=== PATIENT | male | born 1985 | race Two or more races ===

== ENCOUNTER 2021-05-04 01:19 | Inpatient (IN) | payer MEDICAID, OTHER ==
[~2021-05-04] VITALS: Ht 175.3 cm; Wt 102.5 kg
--- NOTE | 2021-05-04 01:30 | NUR ---
PT PROVIDED WITH WARM BLANKETS.
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
--- NOTE | 2021-05-04 02:05 | NUR ---
urine collected sent for lab
[2021-05-04 02:21] LABS: BILIRUBIN,URINE Negative (NEGATIVE); COLOR,URINE YELLOW (YELLOW); LEUKOCYTE ESTERASE ,URINE Negative (NEGATIVE); NITRITE, URINE Negative (NEGATIVE); PROTEIN,URINE Negative (NEGATIVE); UGLUCOSE 500 MG/DL mg/dL (NEGATIVE); UROBILINOGEN,URINE 0.2 EU/dL (0.2)
[2021-05-04 02:24] LABS: BASOPHILS # (AUTO) 0.2 K/uL (0.0-0.2); BASOPHILS % (AUTO) 1.6 % (0.0-2.0); EOSINOPHILS % (AUTO) 2.1 % (0.0-6.0); HEMATOCRIT 43 % (39-51); LYMPHOCYTES # (AUTO) 2.1 K/uL (0.8-4.8); LYMPHOCYTES % (AUTO) 22.1 % (20.0-44.0); MEAN CORPUSCULAR HGB CONC 37 g/dl (31.0-36.0); MEAN CORPUSCULAR VOLUME 94 fL (80-96); MONOCYTES # (AUTO) 0.8 K/uL (0.1-1.30); MONOCYTES % (AUTO) 7.9 % (2.0-12.0); NEUTROPHILS # (AUTO) 6.4 K/uL (1.8-8.9); NEUTROPHILS % (AUTO) 66.3 % (43.0-81.0); PLATELET COUNT (AUTO) 166 K/uL (150-450); RED BLOOD CELL COUNT(AUTO) 4.64 MIL/uL (4.5-6.0); WHITE BLOOD COUNT (AUTO) 9.7 K/uL (4.3-11.0)
[2021-05-04 02:29] LABS: BACTERIA,URINE None seen /HPF (None Seen); MUCUS,URINE Few /LPF (None Seen); SQUAMOUS EPITHELIAL CELL,UR Rare /HPF (None Seen); WBC,URINE 0-2 /HPF (0-3)
--- NOTE | 2021-05-04 03:06 | NUR ---
per lab, blood results are lipemic, therefore delayed
[2021-05-04 03:11] LABS: CARBON DIOXIDE 16 mmol/L (21-32); CHLORIDE 104 mmol/L (98-107); CREATININE 0.9 mg/dL (0.6-1.3); GLUCOSE 192 mg/dL (74-106); POTASSIUM 3.7 mmol/L (3.5-5.1); UREA NITROGEN, BLOOD 7 mg/dL (7-18)
[2021-05-04 03:17] LABS: ALBUMIN 3.5 g/dL (3.4-5.0); ALCOHOL, BLOOD 8 mg/dL (0-0); ALKALINE PHOSPHATASE 178 U/L (46-116); BILIRUBIN,DIRECT 0.1 mg/dL (0.0-0.2); BILIRUBIN,TOTAL 0.8 mg/dL (0.2-1.0); TOTAL PROTEIN, SERUM 7.3 g/dL (6.4-8.2)
[2021-05-04 03:18] LABS: SODIUM SERUM 141 mmol/L (136-145)
[2021-05-04] MEDS ORDERED: IV PREMIX NS +20MEQ KCL 1,000 L IV PRN (03:30)
[2021-05-04] MEDS ORDERED: IV NS 0.9% 1,000 ML BAG IV ONE (03:30)
[2021-05-04] MEDS ORDERED: INSULIN REGULAR, HUMAN 100 UNIT/ML 10 ML VIAL SQ ONE (03:30)
[2021-05-04] MEDS ORDERED: INSULIN REGULAR, HUMAN 100 UNIT/ML 10 ML VIAL ONE (03:36)
--- NOTE | 2021-05-04 03:43 | NUR ---
called house sup for premix NS 20meq KCL Liter
[2021-05-04] MEDS ORDERED: IV PREMIX NS +20MEQ KCL 1 L IV ONE (03:45)
[2021-05-04 04:17] LABS: ALANINE AMINOTRANSFERASE 89 U/L (12-78)
--- NOTE | 2021-05-04 04:19 | NUR ---
iv site #20 left hand ns 1L infusing as ordered
--- NOTE | 2021-05-04 04:19 | NUR ---
paged panel per dr minaya order
[2021-05-04 04:30] LABS: ASPARTATE AMINOTRANSFERASE 99 U/L (15-37)
--- NOTE | 2021-05-04 04:40 | NUR ---
110 is the bed placement per rn train operations supervisor
[2021-05-04] MEDS ORDERED: SULFAMETHOXAZOLE/TRIMETHOPRIM 10 ML in IV D5W 250 ML IV STA (04:51)
[2021-05-04] MEDS ORDERED: CEFAZOLIN 1 GM VIAL IV STA (04:51)
[2021-05-04] MEDS ORDERED: SULFAMETHOXAZOLE/TRIMETHOPRIM 10 ML VIAL IV ONE (05:23)
--- NOTE | 2021-05-04 05:38 | NUR ---
REPORT GIVEN TO CARMELA ON FIRST FLOOR
--- NOTE | 2021-05-04 05:38 | NUR ---
ANCEF IV NOT AVAILABLE DUS TO SHORTAGE. DR WASHINGTON MADE AWARE
--- NOTE | 2021-05-04 06:21 | NUR ---
pt tansferred to room 110 per acls protocol in stable condition. all belongings with pt and accounted for.
[2021-05-04 06:25] VITALS: BP 155/111
--- NOTE | 2021-05-04 06:25 | NUR ---
Patient arrived to unit. hooked up to tele monitor. VS taken. No signs of distress. Hooked back up to fluids. IV patent and intact. Picture taken of L barclay wound. BS 197. will endorse to next shift.
[2021-05-04] MEDS ORDERED: IV NS 0.9% 1,000 ML IV SCH (06:30)
[2021-05-04] MEDS ORDERED: MAG HYDROX/AL HYDROX/SIMETH 30 ML UDC PO PRN (06:30)
[2021-05-04] MEDS ORDERED: ZOLPIDEM TARTRATE 5 MG TABLET PO PRN (06:30)
[2021-05-04] MEDS ORDERED: CLINDAMYCIN IV RTU IN D5W 900 MG/50 ML PIGGYBACK IV SCH (06:30)
[2021-05-04] MEDS ORDERED: Z GUARD REMEDY 2 OZ OINT TP PRN (06:30)
[2021-05-04] MEDS ORDERED: DEXTROSE 50%-WATER 50 ML DISP.SYRIN IV PRN (06:30)
[2021-05-04] MEDS ORDERED: ONDANSETRON HCL/PF 4 MG/2 ML VIAL IVP PRN (06:30)
[2021-05-04] MEDS ORDERED: MAGNESIUM HYDROXIDE 30 ML UDC PO PRN (06:30)
[2021-05-04] MEDS: BLOOD SUGAR DIAGNOSTIC 1 EACH STRIP VI SCH ×4 (07:30→21:05)
[2021-05-04 07:48] LABS: CALCIUM, SERUM 7.2 mg/dL (8.5-10.1); CREATININE 0.6 mg/dL (0.6-1.3); POTASSIUM 3.4 mmol/L (3.5-5.1)
--- NOTE | 2021-05-04 08:03 | NUR ---
RN OPENING NOTES Pt is A/O X4, no respiratory distress, no SOB. Safety precautions implemented, bed locked in lowest position, call light within reach.
--- NOTE | 2021-05-04 08:22 | NUR ---
Endorse to LU Rowe for continuation of care
--- NOTE | 2021-05-04 08:30 | NUR ---
RN NOTE DR. HAGEN NOTIFIED OF CO2 6L. ABG ORDERED DIRECTED.
[2021-05-04] MEDS: CLINDAMYCIN 900 MG in IV D5W 50 ML IV SCH ×3 (08:49→20:08)
[2021-05-04] MEDS: LACTOBACILLUS RHAMNOSUS GG 1 EACH CAP.SPRINK PO SCH ×2 (08:54→16:37)
[2021-05-04 08:59] LABS: ABG BASE EXCESS -1.9 mmol/L; ABG OXYGEN SATURATION 97.8 % (92.0-98.5); ABG PCO2 29.3 mmHg (35.0-45.0); ABG PH 7.464 (7.350-7.450); ABG PO2 95.5 mmHg (75.0-100.0); AaDO2 19.1 mmHg; COHb 0.1 % (0.5-1.5); MetHb 0.2 % (0.0-1.5); O2Hb 97.5 % (94.0-97.0); SITE, ABG Right Brachial; VENT MODE, BG room air
[2021-05-04] MEDS ORDERED: METF-440 PO (09:24)
[2021-05-04] MEDS: *INSULIN REGULAR(HUMULIN R)HUM 100 UNIT/ML VIAL SQ PRN ×2 (09:40→21:18)
[2021-05-04] MEDS: ENOXAPARIN SODIUM 40 MG/0.4 ML DISP.SYRIN SQ SCH (10:37)
[2021-05-04] MEDS: INSULIN REGULAR, HUMAN 100 UNIT/ML 3 ML VIAL SQ PRN ×2 (11:55→16:50)
[2021-05-04 12:00] VITALS: BP 148/111
[2021-05-04] MEDS ORDERED: POTASSIUM CHLORIDE 20 MEQ TAB.PRT.SR PO ONE (12:30)
--- NOTE | 2021-05-04 12:55 | NUR ---
"SS consult: SS consult requested for homelessness. Pt is a 36-year-old, male. SW met with pt at his bedside in the med-surg unit. Pt was alert and oriented x3. Pt presented calm and cooperative. Pt appeared appropriately groomed. Per chart, pt was brought in by ambulance on 05/04/21 for left barclay pain. Pt stated that he is currently homeless and has been living on the [address]. Pt is ambulatory. Pt stated that he currently has access to social support and showed this SW contact information for family members on his phone. Pt provided SW with contact information for his brother, Timo ([phone]) and his sisters, Regina ([phone]), and Ashley ([phone]). Pt stated that his brother Timo provides him with some financial support. Pt stated that he currently receives SSI as a source of income. Pt reported recent alcohol use and stated that he drinks beer, 3x/week. Pt reported no hx of mental illness. Pt reported no current SI/HI. SW offered the pt substance use and homeless resources. Pt accepted the resources and thanked SW. Pt signed the homeless waiver and SW filed the waiver in the pt's chart. SW discussed D/C plans with the pt. Pt stated that he will return to his prior living arrangement on the street at the time of D/C. Pt stated that he is able to use public transportation. PLAN: Pt plans to return to his prior living arrangement at the time of D/C. No further SS intervention at this time, however, SW will remain available as needed. RESOURCES: Year-round shelters: [facility] [address] [place] [address] ; [facility] [address] [place] [address]; [id number] [facility]. [facility] [address] SPA 4 | [facility] [place] Provider: First to Serve Address: [address], [address] # of Beds: 48 Population Served: [facility] Provider: First to Serve Address: [address] [facility], [address] # of Beds: 73 Population Served: [facility] SPA 6 | [facility] Provider: [facility] Address: [address] [facility], [address] # of Beds: 63 Population Served: Coed SPA 3 | [facility] Provider: [facility] [place] Address: [address] [facility], [address] # of Beds: 75 Population Served: [facility] SPA 8 | [facility] Provider: [facility] [place] Address: [address] [facility], [address] # of Beds: 80 Population Served: [facility] SPA 1 | [facility] Provider: [facility] [place] Address: [address] [place] [address], [address] # of Beds: 85 Population Served: [place] SPA 2 | [facility] Provider: Concepcion sommers [facility] Address: Confidential (please call for location) # of Beds: 52 Population Served: [facility] 4 | [facility] Provider: [facility] Address: [address] [facility] [facility], [address] # of Beds: 49 Population Served: [facility] Provider: First To Serve Address: [address] [place] [address], [address] # of Beds: 27 Population Served: [facility] Hygiene: [facility]: [address] [place] ; [facility] [address] [facility] ; [facility] [address] . Food Resources: [place] [facility] at [facility]- [address] [facility]; Meet Each Need with Dignity ([facility]) [address] [facility]; [facility] [address] [facility]; [facility] [address] [place]. Mental Health resources provided: [facility] [address] [place], [place] [address] ; [facility] [address] [facility] [address], [place] [address] ; [facility] [address] [facility] [place], [place] [id number] ; [facility] [address] [place], [place] [address] Healthcare Clinics: [facility] [address] [facility], [address] [place]. [place] ; [facility] [address] [facility] [address] [place] [address]; [facility] [address] [facility]. [place] [phone] Counseling--Outpatient [facility] [address] [facility], [address] [place], [place] [address] (Specializes in in-depth psychotherapy for emotional distress: anxiety, depression, interpersonal conflicts, life transitions, childhood abuse) PSYCHIATRIC OUTPATIENT SERVICES [facility] Partial Hospitalization and Intensive Outpatient Program (Managed Care and [place] Only) [address] [facility]. [facility] [address] [facility] Partial Hospitalization and Outpatient Program [address] [facility]. [address] [place], [place] [id number] [facility] Partial Hospitalization and Outpatient Program [address] [facility]. [place], [place] [id number] [facility] [place] [facility] [address] [facility]. [address] [place], [place] [address] [facility] Partial Hospitalization and Outpatient Program [address] [place], [place] [phone] Substance use resources provided included: [facility] Substance Abuse Self-Helpline (SAS) ; [facility] [address] [facility]. [place] [address] ; [facility] [address] [facility] [address] ; [facility] [address] [facility] [phone] ; [facility] [address] [facility] [address] ; [facility] [address] [facility] [phone] ; [facility] [place]; [facility] [place]; [facility] [place]; Alcoholics Anonymous -SFV"
--- NOTE | 2021-05-04 14:00 | NUR ---
RN Notes Wound culture collected per order. Awaiting lab clam picker.
[2021-05-04 16:00] VITALS: BP 169/112
[2021-05-04] MEDS ORDERED: hydrALAZINE HCL IV 20 MG VIAL IV PRN (16:30)
[2021-05-04] MEDS: METFORMIN 500 MG TABLET PO SCH (16:37)
[2021-05-04] MEDS: CARVEDILOL 6.25 MG TABLET PO SCH (16:39)
--- NOTE | 2021-05-04 17:00 | NUR ---
RN NOTE NOTIFIED JEANE ARBOLEDA PAPER SALES REPRESENTATIVE OF SBP >170. STATED SHE WILL PLACE ORDER.
--- NOTE | 2021-05-04 18:38 | NUR ---
dough braker Closing Note Pt in bed eating dinner with no signs of pain or discomfort. Pt is Icelandic speaking, but able to make needs known. Pt is using urinal with clear/yellow color urine, 1100ml output for shift. Pt is ambulatory and able to ambulate independently. Pt has a L hand gauge 20 running NS @100ml/hr. Wound culture collected and awaiting results. Safety measures in place with bed in lowest locked position and all needs attended.
--- NOTE | 2021-05-04 19:25 | NUR ---
RN OPENING NOTE RECEIVED PATIENT RESTING IN BED. AWAKE, ALERT AND ORIENTED X 4. ABLE TO MAKE NEEDS KNOWN. DENIES PAIN AT THIS TIME. CONTINUES ON ROOM AIR WITH NO S/SX OF RESPIRATORY DISTRESS NOTED. IV ACCESS TO LEFT HAND #20G INTACT AND PATENT. CONTINUES ON IVF NS @ 100ML/HR. CONTINUES ON IV ABX. WOUND CULTURE CURRENTLY PENDING. CALL LIGHT WITHIN REACH. ASPIRATION, FALL AND SAFETY PRECAUTIONS MAINTAINED. WILL CONTINUE TO MONITOR.
[2021-05-04 20:00] VITALS: BP 148/110
[2021-05-04] MEDS: CEFEPIME 2 GM in IV D5W 100 ML IV SCH (20:45)
[2021-05-04] MEDS: ACETAMINOPHEN 325 MG TABLET PO PRN (20:58)
[2021-05-04] MEDS: IV NS 0.9% 1,000 ML IV PRN (22:35)
[2021-05-04 22:54] LABS: CALCIUM, SERUM 7.9 mg/dL (8.5-10.1); CREATININE 0.7 mg/dL (0.6-1.3); POTASSIUM 3.2 mmol/L (3.5-5.1)
[2021-05-05] VITALS: BP 148/99
[2021-05-05 04:00] VITALS: BP 151/83
[2021-05-05] MEDS: CLINDAMYCIN 900 MG in IV D5W 50 ML IV SCH ×3 (05:30→21:44)
[2021-05-05 06:41] LABS: BASOPHILS # (AUTO) 0.1 K/uL (0.0-0.2); BASOPHILS % (AUTO) 0.8 % (0.0-2.0); EOSINOPHILS % (AUTO) 7.9 % (0.0-6.0); HEMATOCRIT 45 % (39-51); HEMOGLOBIN 15.7 g/dL (13.5-17.5); LYMPHOCYTES % (AUTO) 28.4 % (20.0-44.0); MEAN CORPUSCULAR HGB CONC 35 g/dl (31.0-36.0); MEAN CORPUSCULAR VOLUME 93 fL (80-96); MONOCYTES # (AUTO) 0.6 K/uL (0.1-1.30); MONOCYTES % (AUTO) 8.9 % (2.0-12.0); NEUTROPHILS # (AUTO) 3.9 K/uL (1.8-8.9); PLATELET COUNT (AUTO) 155 K/uL (150-450); RED BLOOD CELL COUNT(AUTO) 4.86 MIL/uL (4.5-6.0); WHITE BLOOD COUNT (AUTO) 7.1 K/uL (4.3-11.0)
--- NOTE | 2021-05-05 06:42 | NUR ---
RN CLOSING NOTE PATIENT CURRENTLY RESTING IN BED. AWAKE, ALERT AND ORIENTED X 4. ABLE TO MAKE NEEDS KNOWN. DENIES PAIN AT THIS TIME. CONTINUES ON ROOM AIR WITH NO S/SX OF RESPIRATORY DISTRESS NOTED. IV ACCESS TO LEFT HAND #20G INTACT AND PATENT. CONTINUES ON IVF NS @ 100ML/HR. CONTINUES ON IV ABX. WOUND CULTURE CURRENTLY PENDING. CALL LIGHT WITHIN REACH. ASPIRATION, FALL AND SAFETY PRECAUTIONS MAINTAINED. WILL ENDORSE PLAN OF CARE TO ONCOMING SHIFT.
[2021-05-05 06:58] LABS: CALCIUM, SERUM 7.8 mg/dL (8.5-10.1); CREATININE 0.7 mg/dL (0.6-1.3); MAGNESIUM 1.9 mg/dL (1.8-2.4); POTASSIUM 3.5 mmol/L (3.5-5.1)
--- NOTE | 2021-05-05 07:24 | NUR ---
RN NOTE PATIENT IS IN BED WITH HOB AT [facility]. PATIENT IS AOX4. PATIENT IS ON ROOM AIR WITH NO SIGNS OF LABORED BREATHING. LHAND #20G IS PATENT AND INTACT. BED IS LOCKED IN THE LOWEST POSITION, 3 GUARD RAILS RAISED, CALL MARCIAL WITHIN REACH, AND ALL HOSPITAL SAFETY PRECAUTIONS ARE BEING FOLLOWED. WILL CONTINUE TO MONITOR THROUGHOUT SHIFT.
[2021-05-05] MEDS: BLOOD SUGAR DIAGNOSTIC 1 EACH STRIP VI SCH ×4 (07:30→22:28)
[2021-05-05 08:00] VITALS: BP 158/100
[2021-05-05 08:51] LABS: ABG BASE EXCESS -1.6 mmol/L; ABG OXYGEN SATURATION 96.8 % (92.0-98.5); ABG PH 7.453 (7.350-7.450); AaDO2 31.6 mmHg; COHb 0.9 % (0.5-1.5); MetHb 0.1 % (0.0-1.5); O2Hb 95.8 % (94.0-97.0); SITE, ABG Right Radial; VENT MODE, BG room air
--- NOTE | 2021-05-05 09:20 | NUR ---
RN NOTE ENDORSED TO LU BULL FOR CRISTAL.
--- NOTE | 2021-05-05 09:34 | NUR ---
WOUND CARE CONSULT: REVIEWED CHART, NURSING DOCUMENTATION AND PHOTO WHICH INDICATES LARGE DARK AREA OF DISCOLORATION TO LEFT LOWER LEG WITH REDNESS AND SWELLING, PRESENT ON ADMISSION. DR GONZALEZ NOTIFIED OF DPM CONSULT REQUEST. IN AGREEMENT WITH PLAN OF CARE. CURRENT HUSSAIN SCORE IS 20.
[2021-05-05] MEDS: CARVEDILOL 6.25 MG TABLET PO SCH ×2 (09:51→17:00)
[2021-05-05] MEDS: METFORMIN 500 MG TABLET PO SCH ×2 (09:51→17:00)
[2021-05-05] MEDS: LACTOBACILLUS RHAMNOSUS GG 1 EACH CAP.SPRINK PO SCH ×2 (09:51→17:00)
[2021-05-05] MEDS: CEFEPIME 2 GM in IV D5W 100 ML IV SCH ×2 (09:52→22:26)
[2021-05-05] MEDS: ENOXAPARIN SODIUM 40 MG/0.4 ML DISP.SYRIN SQ SCH (09:53)
[2021-05-05] MEDS: IV NS 0.9% 1,000 ML IV PRN (10:02)
[2021-05-05 12:00] VITALS: BP 153/111
[2021-05-05] MEDS: ACETAMINOPHEN 325 MG TABLET PO PRN (12:38)
[2021-05-05] MEDS: INSULIN REGULAR, HUMAN 100 UNIT/ML 3 ML VIAL SQ PRN (12:50)
[2021-05-05] MEDS ORDERED: KETOCONAZOLE SHAMPOO 120 ML BOTTLE TP PRN (15:00)
[2021-05-05] MEDS ORDERED: KETOCONAZOLE 2% CREAM 15 GM TUBE TP PRN (15:00)
[2021-05-05 16:00] VITALS: BP 153/111
--- NOTE | 2021-05-05 19:00 | NUR ---
RN NOTE PT FOUND IN SEMI FOWLERS POSITION DISPLAYING NO S/S OF DISTRESS, PT ENDORSES NO PAIN AND IS BREATHING EVEN AND UNLABORED. PT DISCONNECTED FROM IV FOR SAFER RESTROOM AMBULATION. L HAND 20G IV PATIENT AND INTACT. CHARTS CHECKED AND REPORT GIVEN TO ONLINE MEDIA DIRECTOR RN FOR CRISTAL.
[2021-05-05 20:00] VITALS: BP 148/101
--- NOTE | 2021-05-05 20:00 | NUR ---
MS RN NOTE PT IN BED AWAKE. A/O X 4, NO SOB, NO DISTRESS OR DISCOMFORT NOTED. DENIES PAIN. IVF NS INFUSING 100 ML/HR, NO S/S OF INFILTRATION NOTED. ALL NEEDS ATTENDED. KEPT HIM DRY AND CLEAN. SIDE RAILS UP X 2 AND CALL LIGHT WITHIN REACH. VSS. CONTINUE TO MONITOR.
[2021-05-05] MEDS: *INSULIN REGULAR(HUMULIN R)HUM 100 UNIT/ML VIAL SQ PRN (22:35)
[2021-05-06] VITALS: BP 136/104
[2021-05-06 04:00] VITALS: BP 138/102
[2021-05-06] MEDS: CLINDAMYCIN 900 MG in IV D5W 50 ML IV SCH ×3 (05:37→21:46)
[2021-05-06 06:37] LABS: BASOPHILS # (AUTO) 0.1 K/uL (0.0-0.2); BASOPHILS % (AUTO) 0.8 % (0.0-2.0); EOSINOPHILS % (AUTO) 6.9 % (0.0-6.0); HEMATOCRIT 46 % (39-51); HEMOGLOBIN 15.9 g/dL (13.5-17.5); LYMPHOCYTES % (AUTO) 20.9 % (20.0-44.0); MEAN CORPUSCULAR HGB CONC 34 g/dl (31.0-36.0); MEAN CORPUSCULAR VOLUME 94 fL (80-96); MONOCYTES % (AUTO) 10.8 % (2.0-12.0); NEUTROPHILS # (AUTO) 5.8 K/uL (1.8-8.9); NEUTROPHILS % (AUTO) 60.6 % (43.0-81.0); PLATELET COUNT (AUTO) 181 K/uL (150-450); WHITE BLOOD COUNT (AUTO) 9.5 K/uL (4.3-11.0)
--- NOTE | 2021-05-06 06:39 | NUR ---
MS RN NOTE PT IN BED ASLEEP, NO DISTRESS OR DISCOMFORT NOTED. NO S/S OF PAIN NOTED. ALL NEEDS ATTENDED. SIDE RAILS UP X 2 AND CALL LIGHT WITHIN REACH. WILL ENDORSE TO DAY SHIFT NURSE FOR CONTINUE TO CARE.
[2021-05-06 07:18] LABS: CALCIUM, SERUM 8.5 mg/dL (8.5-10.1); CREATININE 0.7 mg/dL (0.6-1.3); PHOSPHORUS 3.8 mg/dL (2.5-4.9); POTASSIUM 3.6 mmol/L (3.5-5.1)
--- NOTE | 2021-05-06 07:18 | NUR ---
RN NOTE PATIENT IS IN BED WITH HOB AT [facility]. PATIENT IS ON ROOM AIR WITH NO SIGNS OF LABORED BREATHING. PATIENT IS AOX4. LHAND 20 IS PATENT AND INTACT. BED IS LOCKED IN THE LOWEST POSITION, 3 GUARD RAILS RAISED, CALL MARCIAL WITHIN REACH, AND ALL HOSPITAL SAFETY PRECAUTIONS ARE BEING FOLLOWED. WILL CONTINUE TO MONITOR THROUGHOUT SHIFT.
[2021-05-06] MEDS: *INSULIN REGULAR(HUMULIN R)HUM 100 UNIT/ML VIAL SQ PRN ×3 (07:44→17:18)
[2021-05-06] MEDS: BLOOD SUGAR DIAGNOSTIC 1 EACH STRIP VI SCH ×4 (07:48→21:53)
[2021-05-06 08:00] VITALS: BP 152/103
[2021-05-06] MEDS: LACTOBACILLUS RHAMNOSUS GG 1 EACH CAP.SPRINK PO SCH ×2 (09:23→16:48)
[2021-05-06] MEDS: METFORMIN 500 MG TABLET PO SCH ×2 (09:23→16:47)
[2021-05-06] MEDS: CARVEDILOL 6.25 MG TABLET PO SCH ×2 (09:23→16:48)
[2021-05-06] MEDS: CEFEPIME 2 GM in IV D5W 100 ML IV SCH ×2 (09:24→21:46)
[2021-05-06] MEDS: ENOXAPARIN SODIUM 40 MG/0.4 ML DISP.SYRIN SQ SCH (09:25)
[2021-05-06] MEDS: SILVER SULFADIAZINE 50 GM JAR TP SCH (09:26)
[2021-05-06] MEDS ORDERED: LIDOCAINE 1% INJ 50 ML MDV IJ ONE (13:30)
[2021-05-06 16:00] VITALS: BP 149/104
[2021-05-06] MEDS: IV NS 0.9% 1,000 ML IV PRN (16:51)
--- NOTE | 2021-05-06 18:58 | NUR ---
RN NOTE PATIENT IS IN BED WITH HOB AT [facility] POS[facility]. PATIENT IS ON ROOM AIR WITH NO SIGNS OF LABORED BREATHING. PATIENT IS AOX4. LHAND 20 IS PATENT AND INTACT. BED IS LOCKED IN THE LOWEST POSITION, 3 GUARD RAILS RAISED, CALL MARCIAL WITHIN REACH, AND ALL HOSPITAL SAFETY PRECAUTIONS ARE BEING FOLLOWED. ALL DUE MEDS GIVEN AND PATIENT REMAINED STABLE THROUGHOUT SHIFT. WILL ENDORSE TO WASTE RECYCLER RN.
--- NOTE | 2021-05-06 19:30 | NUR ---
RN NOTE RECEIVED PATIENT IN BED, AO X 4, IN NO S/SX OF ACUTE DISTRESS AT THIS TIME, BREATHING EVEN AND UNLABORED, SATURATION AT 100% ON ROOM AIR, HR IS 93. NOTED IV LINE AT L HAND 20G, PATENT AND FLUSHING WELL, NO S/S OF INFECTION OR INFILTRATION NOTED WITH NS INFUSING AT 100 ML/HR. SAFETY MEASURES IMPLEMENTED. BED IS LOCKED, IN LOWEST POSITION AND SIDE RAILS UP X2. CALL LIGHT WITHIN REACH OF PATIENT. WILL CONTINUE TO MONITOR AND REASSESS FOR ANY CHANGES.
[2021-05-06] MEDS: INSULIN REGULAR, HUMAN 100 UNIT/ML 3 ML VIAL SQ PRN (21:53)
[2021-05-07] MEDS: ACETAMINOPHEN 325 MG TABLET PO PRN (04:25)
[2021-05-07] MEDS: CLINDAMYCIN 900 MG in IV D5W 50 ML IV SCH (05:30)
--- NOTE | 2021-05-07 05:45 | NUR ---
RN NOTE PT TRANSFERRED TO MS 315-1 FOR CRISTAL, PT IN STABLE CONDITION, NO SIGN OF ACUTE DISTRESS NOTED, BREATHING EVEN AND UNLABORED, SATURATION AT 100% ON ROOM AIR, IV LINE AT L HAND 20G STILL PATENT AND FLUSHING WITH NS INFUSING AT 100ML/HR, AND ONGOING CLINDAMYCIN 900 MG AT 112 ML/HR. ALL BELONGINGS ACCOUNTED FOR. REPORT GIVEN TO SANDI LEIGH FOR CRISTAL.
[2021-05-07 05:50] VITALS: BP 129/74
--- NOTE | 2021-05-07 05:50 | NUR ---
MS location worker/Opening Notes Patient was transferred via gurney from the [facility] accompanied by Nurse Valle and RIP Downs. Patient was oriented to the staff and his room. Patient's alert and oriented x4. Patient's on room air with no respiratory distress noted. Patient has an IV access on his left hand #20, which is intact, patent, and flushing well. Patient's in no acute distress at this time. Safety measures in place: Bed locked, side rails upx2, and call light within reach. Will continue to monitor the patient.
--- NOTE | 2021-05-07 06:15 | NUR ---
MS RN Notes Patient's blood sugar at 0613 was 146mg/dL. Will give ordered insulin and monitor the patient.
[2021-05-07] MEDS: INSULIN REGULAR, HUMAN 100 UNIT/ML 3 ML VIAL SQ PRN ×2 (06:24→11:23)
[2021-05-07] MEDS: BLOOD SUGAR DIAGNOSTIC 1 EACH STRIP VI SCH ×2 (06:35→11:23)
--- NOTE | 2021-05-07 07:01 | NUR ---
MS RN Closing Notes Patient was seen awake in his room. Patient's alert and oriented x4. Patient's on room air with no respiratory distress noted. Patient has an IV access on his left hand #20, which is intact, patent, and flushing well. Patient's in no acute distress at this time. Safety measures in place: Bed locked, side rails upx2, and call light within reach. Endorsed care to the day shift nurse.
--- NOTE | 2021-05-07 07:09 | NUR ---
RN OPENING NOTE RECEIVED PATIENT RESTING IN BED. AWAKE, ALERT AND ORIENTED X 4. ABLE TO MAKE NEEDS KNOWN. DENIES PAIN AT THIS TIME. PATIENT IS BREATHING EVENLY AND NONLABORED ON ROOM AIR WITH NO S/SX OF RESPIRATORY DISTRESS NOTED. IV ACCESS TO LEFT HAND #20G INTACT AND PATENT. CONTINUES ON IVF NS @ 100ML/HR. CONTINUES ON IV ABX. WOUND CULTURE CURRENTLY PENDING. SAFETY MEASURES ARE IN PLACE BED LOW LOCKED AND CALL LIGHT WITHIN REACH. ASPIRATION, FALL AND SAFETY PRECAUTIONS MAINTAINED. WILL CONTINUE TO MONITOR
[2021-05-07 08:00] VITALS: BP 138/99
[2021-05-07] MEDS: ENOXAPARIN SODIUM 40 MG/0.4 ML DISP.SYRIN SQ SCH (08:08)
[2021-05-07] MEDS: LACTOBACILLUS RHAMNOSUS GG 1 EACH CAP.SPRINK PO SCH (08:09)
[2021-05-07] MEDS: METFORMIN 500 MG TABLET PO SCH (08:09)
[2021-05-07 08:12] VITALS: BP 138/99
[2021-05-07] MEDS: CARVEDILOL 6.25 MG TABLET PO SCH (08:12)
[2021-05-07] MEDS: CEFEPIME 2 GM in IV D5W 100 ML IV SCH (08:17)
[2021-05-07] MEDS: SILVER SULFADIAZINE 50 GM JAR TP SCH (08:17)
--- NOTE | 2021-05-07 08:50 | NUR ---
RN NOTE PATIENT IV ACCESS NOTED TO BE OCCLUDED TRIED TO FLUSH, PATIENT ALSO COMPLAINED AND IV SITE PAIN. IV INFILTRATED. IV ACCESS REINSERTED TO RFA #22 GAUGE PATENT AND INTACT. WILL CONTINUE TO MONITOR
[2021-05-07] MEDS ORDERED: CARV6.252 PO (10:27)
[2021-05-07] MEDS ORDERED: KETO15CR2 TP (10:27)
--- NOTE | 2021-05-07 10:54 | NUR ---
D/C Planning: SW met with pt. bedside to discuss D/C plan as he will discharged today at 1 pm. Pt. states he will try to have his friend Kaylee [phone] pick him up as she stated he may stay with her a few days. If not, pt. will d/c to self, Pt. is homeless. Pt. stated he would like order for diabetic pills to be sent to [facility] [[address] [facility] [address]; [phone]]. SATYA notified nurseDean of this information and she is agreeable. Pt. is Luxembourgish speaking and SW translated for nurse to answer pt.'s questions and provide him with D/C instruction to follow up at wound clinic outpatient. Pt. expressed understanding. Pt. has signed homeless waiver in the past and has been given homeless resources.
--- NOTE | 2021-05-07 13:12 | NUR ---
LINE UP EXAMINER NOTE RECEIVED ORDER FOR DISCHARGE. PATIENT IS A/O X4, ABLE TO MAKE NEEDS KNOWN. PATIENT IS BREATHING EVENLY AND NONLABORED ON ROOM AIR. NO SIGNS OF DISTRESS NOTED. PATIENT WAS GIVEN DISCHARGE INSTRUCTIONS BOTH VERBALLY AND IN WRITTEN FORM. PATIENT VERBALIZED UNDERSTANDING. PATIENT'S BELONGINGS ACCOUNTED FOR AND FORM SIGNED. IV ACCESS WAS REMOVED IV CATHETER INTACT AND PRESSURE DRESSING APPLIED. CONFIRMED PATIENT HAD ALL NEEDED ITEMS FOR DISCHARGE INCLUDING DRESSING CHANGE MATERIALS. PATIENT WAS EDUCATED ON HOW TO PERFORM DRESSING CHANGE, VERBALIZED UNDERSTANDING. PATIENT WAS ALSO GIVEN WOUND CLINIC AND PHARMACY INFORMATION. PATIENT LEFT IN STABLE CONDITION VIA PRIVATE CAR.
== END 2021-05-07 13:45 | disposition home or self-care (01) | DRG 383 ==
LOC: ER 01:21 → TELE1 04:41 → MEDSG1 05-05 09:22 → MED 05-07 05:46
PROVIDERS: ADMIT Registered Nurse; ATTEND Nurse Practitioner Acute Care
PROC: 0JBP0ZZ Excision of Left Lower Leg Subcutaneous Tissue and Fascia, Open Approach (ICD-10-PCS; principal; 2021-05-06)
DX: L03.116 Cellulitis of left lower limb (principal); E11.10 Type 2 diabetes mellitus with ketoacidosis without coma; E87.4 Mixed disorder of acid-base balance; E83.51 Hypocalcemia; Z20.822 Contact with and (suspected) exposure to COVID-19; Z59.0 Homelessness; I10 Essential (primary) hypertension; M19.90 Unspecified osteoarthritis, unspecified site; E11.622 Type 2 diabetes mellitus with other skin ulcer; E66.01 Morbid (severe) obesity due to excess calories; E87.6 Hypokalemia; L97.828 Non-pressure chronic ulcer of other part of left lower leg with other specified severity; R74.01 Elevation of levels of liver transaminase levels; G47.33 Obstructive sleep apnea (adult) (pediatric); S80.12XA Contusion of left lower leg, initial encounter; Z68.33 Body mass index [BMI] 33.0-33.9, adult; Y93.9 Activity, unspecified; W22.8XXA Striking against or struck by other objects, initial encounter; E11.65 Type 2 diabetes mellitus with hyperglycemia; Y92.89 Other specified places as the place of occurrence of the external cause; Z79.84 Long term (current) use of oral hypoglycemic drugs
CPT/HCPCS: 36415; 36600; 71045-TC; 73564-TC; 73590-TC; 73610-TC; 80048-TC; 80061-TC; 80076-TC; 81001; 82803-TC; 82962-TC; 83735-TC; 84100-TC; 84484-TC; 85025-TC; 85652-TC; 86140-TC; 87040-TC; 87070-TC; 87081-TC; 87086-TC; 93970-TC; A6253; A6403; G0378; G0480; J0690; J0692; J1650; J1815; J3490; J7030; J7050; J7060; U0003

== ENCOUNTER 2021-09-20 19:10 | Emergency (ER) | payer SELFPAY ==
[~2021-09-20] VITALS: Ht 167.6 cm; Wt 113.4 kg
[~2021-09-20 19:10] MED LIST: CARV6.252 PO; KETO15CR2 TP; METF-440 PO
--- NOTE | 2021-09-20 20:35 | NUR ---
PT CAME IN C/O HIGH BLOOD SUGAR 358. PT IS A/OX4 PLACED ON MONITOR.
[2021-09-20] MEDS ORDERED: IV NS 0.9% 1,000 ML BAG IV ONE ×2 (21:00→23:30)
--- NOTE | 2021-09-20 21:20 | NUR ---
L HAND #20G S/L; PATENT AND INTACT. BLOOD COLLECTED AND SENT TO LAB
[2021-09-20 21:35] LABS: BASOPHILS # (AUTO) 0.1 K/uL (0.0-0.2); BASOPHILS % (AUTO) 1.3 % (0.0-2.0); EOSINOPHILS % (AUTO) 4.6 % (0.0-6.0); HEMATOCRIT 47 % (39-51); HEMOGLOBIN 16.3 g/dL (13.5-17.5); LYMPHOCYTES # (AUTO) 2.6 K/uL (0.8-4.8); LYMPHOCYTES % (AUTO) 30.4 % (20.0-44.0); MEAN CORPUSCULAR HGB CONC 35 g/dl (31.0-36.0); MEAN CORPUSCULAR VOLUME 92 fL (80-96); MONOCYTES # (AUTO) 0.5 K/uL (0.1-1.30); NEUTROPHILS # (AUTO) 4.9 K/uL (1.8-8.9); NEUTROPHILS % (AUTO) 57.7 % (43.0-81.0); PLATELET COUNT (AUTO) 239 K/uL (150-450); RED BLOOD CELL COUNT(AUTO) 5.05 MIL/uL (4.5-6.0); WHITE BLOOD COUNT (AUTO) 8.5 K/uL (4.3-11.0)
[2021-09-20 21:42] LABS: BILIRUBIN,URINE NEGATIVE (NEGATIVE); COLOR,URINE YELLOW (YELLOW); LEUKOCYTE ESTERASE ,URINE NEGATIVE (NEGATIVE); NITRITE, URINE NEGATIVE (NEGATIVE); PROTEIN,URINE NEGATIVE (NEGATIVE); UGLUCOSE >=1000 mg/dL (NEGATIVE); UROBILINOGEN,URINE 0.2 EU/dL (0.2)
[2021-09-20 22:01] LABS: BACTERIA,URINE RARE /HPF (None Seen); SQUAMOUS EPITHELIAL CELL,UR 0-2 /HPF (None Seen); WBC,URINE 0-2 /HPF (0-3); YEAST,URINE Few /HPF (None Seen)
[2021-09-20 22:01] LABS: ALBUMIN 3.7 g/dL (3.4-5.0); BILIRUBIN,DIRECT 0.1 mg/dL (0.0-0.2); BILIRUBIN,TOTAL 0.5 mg/dL (0.2-1.0); CREATININE 0.9 mg/dL (0.6-1.3); POTASSIUM 3.7 mmol/L (3.5-5.1)
[2021-09-20 23:24] LABS: ABG BASE EXCESS -4.5 mmol/L; ABG PCO2 33.2 mmHg (35.0-45.0); ABG PH 7.386 (7.350-7.450); ABG PO2 94.4 mmHg (75.0-100.0); COHb 0.3 % (0.5-1.5); MetHb 0.5 % (0.0-1.5); O2Hb 96.3 % (94.0-97.0); SITE, ABG Left Radial; VENT MODE, BG Room Air
[2021-09-20] MEDS ORDERED: METF-442 PO (23:26)
[2021-09-20] MEDS ORDERED: INSU100I14 SQ (23:26)
[2021-09-20] MEDS ORDERED: INSULIN REGULAR, HUMAN 100 UNIT/ML 10 ML VIAL IV ONE (23:30)
[2021-09-20] MEDS ORDERED: FLUCONAZOLE (100 MG) 100 MG TABLET PO ONE (23:30)
[2021-09-20] MEDS ORDERED: FLUCONAZOLE (100 MG) 100 MG TABLET ONE (23:33)
[2021-09-20 23:46] LABS: TOTAL PROTEIN, SERUM 8.1 g/dL (6.4-8.2)
[2021-09-20] MEDS ORDERED: INSULIN REGULAR, HUMAN 100 UNIT/ML 3 ML VIAL ONE (23:53)
--- NOTE | 2021-09-21 00:51 | NUR ---
BS 229
[2021-09-21 02:00] LABS: CALCIUM, SERUM 7.4 mg/dL (8.5-10.1); CREATININE 0.7 mg/dL (0.6-1.3); POTASSIUM 3.4 mmol/L (3.5-5.1)
--- NOTE | 2021-09-21 02:41 | NUR ---
Patient discharged to home in stable condition.RX, Written and verbal after care instructions given. Patient verbalizes understanding of instruction.IV removed. Catheter intact and site benign. Pressure and 4x4 applied to site. No bleeding noted.
[2021-09-21 02:42] VITALS: BP 128/71
== END 2021-09-21 02:41 | disposition home or self-care (01) ==
LOC: ER 19:10
DX: E11.65 Type 2 diabetes mellitus with hyperglycemia (principal); Z79.4 Long term (current) use of insulin; Z20.822 Contact with and (suspected) exposure to COVID-19
CPT/HCPCS: 36415; 36600; 80048 ×4; 80076; 81001; 82010; 82803; 82962 ×2; 85025; 87426; 96360; 96361; 96372; 99285; C9803; J1815; J7030

== ENCOUNTER 2021-12-14 12:53 | Emergency (ER) | payer SELFPAY ==
[~2021-12-14] VITALS: Ht 165.1 cm; Wt 81.6 kg
[~2021-12-14 12:53] MED LIST changes: +INSU100I14 SQ; +METF-442 PO
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
--- NOTE | 2021-12-14 14:09 | NUR ---
Patient discharged to home in stable condition. Written and verbal after care instructions given. Patient verbalizes understanding of instruction.
[2021-12-14 14:10] VITALS: BP 156/98
== END 2021-12-14 14:10 | disposition home or self-care (01) ==
LOC: ER 12:56
DX: S47.1XXA Crushing injury of right shoulder and upper arm, initial encounter (principal); E11.9 Type 2 diabetes mellitus without complications; Z60.2 Problems related to living alone; Z79.899 Other long term (current) drug therapy; Z79.84 Long term (current) use of oral hypoglycemic drugs; Z79.4 Long term (current) use of insulin; V09.9XXA Pedestrian injured in unspecified transport accident, initial encounter; Y93.89 Activity, other specified; Y92.89 Other specified places as the place of occurrence of the external cause; Y99.8 Other external cause status

== ENCOUNTER 2022-01-25 21:24 | Emergency (ER) | payer OTHER ==
[~2022-01-25] VITALS: Ht 167.6 cm; Wt 104.3 kg
[2022-01-25 22:07] VITALS: BP 150/94
--- NOTE | 2022-01-25 22:15 | NUR ---
DONALD INCIDENT REPORT [id number] OFFICER YESENIA
[2022-01-25] MEDS ORDERED: MORPHINE SULFATE INJ 2 MG/ML DISP.SYRIN IM ONE (22:30)
[2022-01-25] MEDS ORDERED: TDAP [DIPH/PERTUSSIS/TET] 0.5 ML VIAL IM ONE ×2 (22:30→22:36)
[2022-01-25] MEDS ORDERED: MORPHINE SULFATE INJ 4 MG/ML DISP.SYRIN ONE (22:36)
--- NOTE | 2022-01-26 00:08 | NUR ---
WOUND CARE AND SPLINT APPLIED.
== END 2022-01-26 01:05 | disposition home or self-care (01) ==
LOC: ER 21:26
DX: S62.522A Displaced fracture of distal phalanx of left thumb, initial encounter for closed fracture (principal); S00.212A Abrasion of left eyelid and periocular area, initial encounter; Z60.2 Problems related to living alone; Z79.899 Other long term (current) drug therapy; Y00.XXXA Assault by blunt object, initial encounter; Y93.89 Activity, other specified; Y92.89 Other specified places as the place of occurrence of the external cause; Y99.8 Other external cause status
CPT/HCPCS: 29125; 70450; 73130; 90471; 90715; 96372; 99284; J2270

== ENCOUNTER 2022-05-16 04:50 | Inpatient (IN) | payer OTHER ==
[~2022-05-16] VITALS: Ht 167.6 cm; Wt 80.5 kg
--- NOTE | 2022-05-16 04:55 | NUR ---
MARGIE/[facility] FROM ALF FOR WITNESSED 1-2MIN SEIZURE -HT BS 671 AT THE SCENE. PT A/OX3; URDU SPEAKING. TOLERATING R/A WELL WITH NO SOB. CONNECTED PT TO POX AND MONITOR. SAFETY MEASURES IN PLACE. SEIZURE PRECAUTIONS IN PLACE.
--- NOTE | 2022-05-16 05:10 | NUR ---
DR. PADMINI FRANCOIS AT PT'S BEDSIDE
--- NOTE | 2022-05-16 05:16 | NUR ---
BS 298
[2022-05-16] MEDS ORDERED: IV NS 0.9% 1,000 ML BAG IV ONE (05:30)
--- NOTE | 2022-05-16 05:31 | NUR ---
R ELMER #20G S/L BLOOD COLLECTED AND SENT TO LAB
--- NOTE | 2022-05-16 05:32 | NUR ---
COVID SWAB OBTAINED AND SENT TO LAB
--- NOTE | 2022-05-16 05:32 | NUR ---
BLOOD COLLECTED AND SENT TO LAB
--- NOTE | 2022-05-16 05:39 | NUR ---
URINE COLLECTED AND SENT TO LAB
--- NOTE | 2022-05-16 05:41 | NUR ---
BROWN SOURER AT PT'S BEDSIDE
--- NOTE | 2022-05-16 05:50 | NUR ---
PT RETURNED TO ER BED [address]
[2022-05-16] MEDS ORDERED: LORAZEPAM INJ 2 MG/ML VIAL ONE (05:57)
[2022-05-16 05:58] LABS: BASOPHILS # (AUTO) 0.1 K/uL (0.0-0.2); BASOPHILS % (AUTO) 0.8 % (0.0-2.0); EOSINOPHILS % (AUTO) 4.4 % (0.0-6.0); HEMATOCRIT 47 % (39-51); HEMOGLOBIN 16.5 g/dL (13.5-17.5); LYMPHOCYTES # (AUTO) 1.8 K/uL (0.8-4.8); LYMPHOCYTES % (AUTO) 19.1 % (20.0-44.0); MEAN CORPUSCULAR HGB CONC 35 g/dl (31.0-36.0); MEAN CORPUSCULAR VOLUME 91 fL (80-96); MONOCYTES # (AUTO) 0.8 K/uL (0.1-1.30); MONOCYTES % (AUTO) 8.1 % (2.0-12.0); NEUTROPHILS # (AUTO) 6.5 K/uL (1.8-8.9); NEUTROPHILS % (AUTO) 67.6 % (43.0-81.0); PLATELET COUNT (AUTO) 243 K/uL (150-450); RED BLOOD CELL COUNT(AUTO) 5.16 MIL/uL (4.5-6.0); WHITE BLOOD COUNT (AUTO) 9.6 K/uL (4.3-11.0)
[2022-05-16] MEDS ORDERED: LORAZEPAM INJ 2 MG/ML VIAL IV ONE (06:00)
[2022-05-16 06:18] LABS: ALANINE AMINOTRANSFERASE 80 U/L (12-78); ALBUMIN 3.6 g/dL (3.4-5.0); ALKALINE PHOSPHATASE 147 U/L (46-116); ASPARTATE AMINOTRANSFERASE 52 U/L (15-37); BILIRUBIN,DIRECT 0.2 mg/dL (0.0-0.2); BILIRUBIN,TOTAL 0.6 mg/dL (0.2-1.0); CALCIUM, SERUM 8.9 mg/dL (8.5-10.1); CARBON DIOXIDE 20 mmol/L (21-32); CHLORIDE 97 mmol/L (98-107); CREATININE 0.9 mg/dL (0.6-1.3); GLUCOSE 306 mg/dL (74-106); POTASSIUM 3.2 mmol/L (3.5-5.1); SODIUM SERUM 134 mmol/L (136-145); TOTAL PROTEIN, SERUM 8.7 g/dL (6.4-8.2); UREA NITROGEN, BLOOD 7 mg/dL (7-18)
[2022-05-16 06:22] LABS: ALCOHOL, BLOOD < 3 mg/dL (0-0)
[2022-05-16] MEDS ORDERED: MAG HYDROX/AL HYDROX/SIMETH 30 ML UDC PO PRN (07:30)
[2022-05-16] MEDS ORDERED: IV NS 0.9% 1,000 ML IV PRN (07:30)
[2022-05-16] MEDS ORDERED: LORAZEPAM INJ 2 MG/ML VIAL IV PRN (07:30)
[2022-05-16] MEDS ORDERED: ONDANSETRON HCL/PF 4 MG/2 ML VIAL IVP PRN (07:30)
[2022-05-16] MEDS ORDERED: POTASSIUM CHLORIDE 20 MEQ TAB.PRT.SR PO ONE ×2 (07:30→08:21)
[2022-05-16] MEDS ORDERED: DEXTROSE 50%-WATER 50 ML DISP.SYRIN IV PRN (07:30)
[2022-05-16] MEDS ORDERED: ACETAMINOPHEN 325 MG TABLET PO PRN (07:30)
[2022-05-16] MEDS ORDERED: MAGNESIUM HYDROXIDE 30 ML UDC PO PRN (07:30)
[2022-05-16] MEDS ORDERED: CHLORDIAZEPOXIDE HCL 25 MG CAPSULE ONE (08:21)
[2022-05-16] MEDS: BLOOD SUGAR DIAGNOSTIC 1 EACH STRIP IN SCH ×4 (08:27→21:28)
[2022-05-16] MEDS: CHLORDIAZEPOXIDE HCL 25 MG CAPSULE PO SCH ×3 (08:27→21:27)
[2022-05-16] MEDS: INSULIN REGULAR, HUMAN 100 UNIT/ML 3 ML VIAL SQ PRN ×3 (08:36→21:32)
--- NOTE | 2022-05-16 08:36 | NUR ---
CALLED NURSING CABIN OUTFITTER TO FOLLOW UP W/ TELE BED.
--- NOTE | 2022-05-16 08:41 | NUR ---
MEDS GIVEN INDICATED; PT CURRENTLY EATING BREAKFAST, TSERING WELL.
[2022-05-16] MEDS ORDERED: PANTOPRAZOLE 40 MG VIAL IV SCH (09:00)
[2022-05-16] MEDS ORDERED: PANTOPRAZOLE 40 MG VIAL ONE (09:18)
[2022-05-16] MEDS ORDERED: THIAMINE HCL 100 MG TABLET ONE (09:19)
[2022-05-16] MEDS: THIAMINE HCL 100 MG TABLET PO SCH (09:24)
--- NOTE | 2022-05-16 09:31 | NUR ---
AMBULATED TO THE RESTROOM WITH STEADY GAIT
--- NOTE | 2022-05-16 11:19 | NUR ---
ROOM 320-2
--- NOTE | 2022-05-16 11:26 | NUR ---
PT REPORT GIVEN TO LU MI
--- NOTE | 2022-05-16 11:44 | NUR ---
PT TRANSFERRED TO 320-1 VIA [facility] ACLS PROTOCOL. WARM HANDOFF GIVEN TO LU MI.
--- NOTE | 2022-05-16 11:45 | NUR ---
TELEMETRY ADMITTING NOTES: ADMITTED A 36YO MALE PATIENT FROM ER, ACCOMPANIED BY RN AUNDREA AND TRANSPORTER VIA ROSY. PATIENT ALERT AND ORIENTED X 4 AND ABLE TO VERBALIZED NEEDS. NO SOB OR CARDIAC DISTRESS NOTED. IV ACCESS ON RIGHT HAND G#20 PATENT AND INTACT INFUSING NS 1L x100ML/HR. ON WEIGHT GUESSER WITH CURRENT READING OF SINUS TACHY 90. SKIN ISSUES SEEN AND TOOK PICTURES/PHOTOS AND FILED TO PATIENT'S CHART. ABDOMEN SOFT AND DISTENDED. INITIATED SAFETY MEASURES: BED LOCKED AND IN LOWEST POSITION, SIDE RAILS UP X 2. ON SEIZURE PRECAUTION. WILL MONITOR PATIENT ACCORDINGLY.
[2022-05-16 12:00] VITALS: BP 151/90
[2022-05-16 16:00] VITALS: BP 147/80
[2022-05-16] MEDS: CARVEDILOL 6.25 MG TABLET PO SCH (16:36)
--- NOTE | 2022-05-16 18:40 | NUR ---
WAFER FAB TECHNICIAN CLOSING NOTES: PATIENT IN BED, ALERT AND ORIENTED X 3-4. IRISH SPEAKING. ON SUPERVISOR TANK HOUSE: REFUSED. PATIENT AMBULATORY.IV ACCESS ON RIGHT HAND G#20 PATENT AND INTACT INFUSING NS @100ML/HR. SAFETY PRECAUTIONS MAINTAINED: BED LOCKED AND IN LOWEST POSITION, SIDE RAILS UP X 2. CALL LIGHT IN EASY REACH FOR HELP. WILL ENDORSED TO NOC SHIFT FOR CRISTAL.
[2022-05-16] MEDS ORDERED: KETO15CR2 TP (19:26)
[2022-05-16] MEDS ORDERED: THIA100T74 PO (19:26)
--- NOTE | 2022-05-16 19:45 | NUR ---
MS RN OPENING NOTES PATIENT RECEIVED RESTING IN BED COMFORTABLY; A/OX3-4, WALLISIAN SPEAKING; LIMITED ARABIC; R HAND 20G INTACT AND PATENT, NO S/S OF REDNESS OR INFILTRATION NOTED; SAFETY PRECAUTIONS IMPLEMENTED, BED LOCKED IN LOW POSITION; SIDE RAILSX2, CALL LIGHT WITHIN REACH; WILL CONT PLAN OF CARE
[2022-05-16 20:29] VITALS: BP 159/112
--- NOTE | 2022-05-16 20:47 | NUR ---
MS RN NOTE D/C ORDER IN PLACE, PER PATIENT: HE WOULD LIKE TO BE D/C TOMORROW AM INSTEAD D/T FAMILY OUT OF TOWN, PATIENT RECENTLY RELEASED FROM [facility]; HAS NO RIDE OR WAY TO GET HOME TONIGHT; ASKED DATA VISUALIZATION DEVELOPER FLOORWORKER IF POSSIBLE FOR OVER NIGHT STAY, PER FLOORWORKER EMMIE JAMES; CHARGE NURSE AWARE; WILL KEEP PATIENT OVER NIGHT AND D/C IN ; WILL INFORM DAY SHIFT
--- NOTE | 2022-05-16 22:30 | NUR ---
MS RN NOTES PATIENT PULLED OUT IV SITE; PATIENT DOES NOT WANT RE-INSERTION OF IV BECAUSE HE WILL BE D/C IN AM; CHARGE NURSE AWARE
[2022-05-17] MEDS: CHLORDIAZEPOXIDE HCL 25 MG CAPSULE PO SCH (04:12)
--- NOTE | 2022-05-17 04:14 | NUR ---
MS RN NOTES DISCHARGE PAPERWORK AND INSTRUCTIONS SIGNED BY PATIENT AND FILED IN DISCHARGE FOLDER; CHARGE NURSE AWARE
[2022-05-17 06:09] LABS: BASOPHILS # (AUTO) 0.1 K/uL (0.0-0.2); BASOPHILS % (AUTO) 0.7 % (0.0-2.0); EOSINOPHILS % (AUTO) 6.3 % (0.0-6.0); HEMATOCRIT 45 % (39-51); HEMOGLOBIN 15.5 g/dL (13.5-17.5); LYMPHOCYTES # (AUTO) 1.6 K/uL (0.8-4.8); LYMPHOCYTES % (AUTO) 20.5 % (20.0-44.0); MEAN CORPUSCULAR HGB CONC 34 g/dl (31.0-36.0); MEAN CORPUSCULAR VOLUME 92 fL (80-96); MONOCYTES # (AUTO) 0.7 K/uL (0.1-1.30); NEUTROPHILS # (AUTO) 4.8 K/uL (1.8-8.9); NEUTROPHILS % (AUTO) 63.5 % (43.0-81.0); PLATELET COUNT (AUTO) 208 K/uL (150-450); RED BLOOD CELL COUNT(AUTO) 4.92 MIL/uL (4.5-6.0); WHITE BLOOD COUNT (AUTO) 7.6 K/uL (4.3-11.0)
[2022-05-17 06:19] LABS: ALBUMIN 2.9 g/dL (3.4-5.0); BILIRUBIN,DIRECT 0.3 mg/dL (0.0-0.2); BILIRUBIN,TOTAL 1.2 mg/dL (0.2-1.0); CALCIUM, SERUM 8.5 mg/dL (8.5-10.1); CREATININE 0.7 mg/dL (0.6-1.3); MAGNESIUM 1.9 mg/dL (1.8-2.4); PHOSPHORUS 3.6 mg/dL (2.5-4.9); TOTAL PROTEIN, SERUM 7.5 g/dL (6.4-8.2)
--- NOTE | 2022-05-17 06:32 | NUR ---
MS RN CLOSING NOTES PATIENT RESTING IN BED COMFORTABLY; A/OX3-4, SLOVAK SPEAKING; LIMITED FAROESE; NO IV ACCESS; CHARGE NURSE AWARE; PATIENT TO BE D/C LATER THIS AM; WILL INFORM DAY SHIFT, ALL EXIT CARE AND DISCHARGE PAPERWORK SIGNED; SAFETY PRECAUTIONS IMPLEMENTED, BED LOCKED IN LOW POSITION; SIDE RAILSX2, CALL LIGHT WITHIN REACH; WILL ENDORSE CRISTAL TO ONCOMING SHIFT
[2022-05-17] MEDS: BLOOD SUGAR DIAGNOSTIC 1 EACH STRIP IN SCH (06:36)
[2022-05-17] MEDS: INSULIN REGULAR, HUMAN 100 UNIT/ML 3 ML VIAL SQ PRN (06:39)
--- NOTE | 2022-05-17 07:35 | NUR ---
MS RN OPENING NOTES RECEIVED PATIENT SITTING IN BED COMFORTABLY; A/OX3-4, LAO SPEAKING; LIMITED ICELANDIC; NO IV ACCESS PATIENT REMOVED IT DURING BLENDER HELPER, CHARGE NURSE AWARE; PATIENT FOR DC THIS AM, ALL EXIT CARE AND DISCHARGE PAPERWORK SIGNED; SAFETY PRECAUTIONS IN PLACE BED LOCKED IN LOW POSITION; SIDE RAILSX2, CALL LIGHT WITHIN REACH; WILL CONTINUE TO MONITOR.
[2022-05-17 08:00] VITALS: BP 120/72
--- NOTE | 2022-05-17 08:35 | NUR ---
MS DOUBLE CUT OFF SAW OPERATOR NOTE PT DISCHARGED TO HOME IN STABLE CONDITION. PT A/O X4, LATVIAN SPEAKING, ABLE TO MAKE NEEDS KNOWN. ON RA, TOLERATING WELL WITH SPO2 98%. NO SOB NOTED. NOT IN ANY SIGN OF RESPIRATORY DISTRESS. VITAL SIGNS TAKEN, STABLE, AND RECORDED. PT'S SKIN INTACT. DENIES PAIN OR DISCOMFORT AT THIS TIME. ALL BELONGINGS ACCOUNTED FOR. DISCHARGED INSTRUCTIONS AND HEALTH TEACHINGS GIVEN PATIENT, VERBALIZED UNDERSTANDING. IV ACCESS IN LH G #20 SL REMOVED WITH NO ACTIVE BLEEDING NOTED. DRY PRESSURE DRESSING APPLIED AT SITE. PT LEFT THE UNIT AT 1830 VIA WHEELCHAIR ACCOMPANIED BY ME TO THE PARKING LOT. PATIENT SAFELY TRANSFERRED TO SON'S CAR. DR MCFADDEN AND CHARGE NURSE AWARE OF DISCHARGED. Addendum: 04/30/22 at 1927 by ARGENIS MORTENSEN RN WRONG PATIENT Addendum: 05/17/22 at 1021 by ARGENIS MORTENSEN RN DISREGARD NOTE ABOVE - WRONG DRAFT
--- NOTE | 2022-05-17 08:35 | NUR ---
MS ACCOUNTS PAYABLE OR RECEIVABLE CLERK NOTE PT DISCHARGED TO HOME IN STABLE CONDITION. PT A/O X4, AMBULATORY, LIBYAN SPEAKING, ABLE TO MAKE NEEDS KNOWN. ON RA, TOLERATING WELL WITH SPO2 98%. NO SOB NOTED. NOT IN ANY SIGN OF RESPIRATORY DISTRESS. VITAL SIGNS TAKEN, STABLE, AND RECORDED. PT'S SKIN INTACT. DENIES PAIN OR DISCOMFORT AT THIS TIME. ALL BELONGINGS ACCOUNTED FOR. DISCHARGED INSTRUCTIONS AND HEALTH TEACHINGS GIVEN PATIENT, VERBALIZED UNDERSTANDING. NO IV FOR THIS PATIENT. PT LEFT THE UNIT AT 0830 ON FOOT TO THE LOBBY BY RIP. AND CHARGE NURSE AWARE OF DISCHARGED.
[2022-05-17 09:00] VITALS: BP 138/100
[2022-05-17] MEDS: CARVEDILOL 6.25 MG TABLET PO SCH (09:00)
[2022-05-17] MEDS: THIAMINE HCL 100 MG TABLET PO SCH (09:00)
[2022-05-17] MEDS ORDERED: PANTOPRAZOLE 40 MG TABLET.DR PO SCH (09:00)
[2022-05-17] MEDS ORDERED: POTASSIUM CHLORIDE 20 MEQ TAB.PRT.SR PO SCH (10:00)
== END 2022-05-17 08:30 | disposition home or self-care (01) | DRG 53 ==
LOC: ER 04:54 → TRANSITION 08:13 → TELE 11:19 → MED 20:40
PROVIDERS: ADMIT Nurse Practitioner Acute Care; ATTEND Nurse Practitioner Acute Care
DX: G40.509 Epileptic seizures related to external causes, not intractable, without status epilepticus (principal); G93.41 Metabolic encephalopathy; K76.6 Portal hypertension; E87.2 Acidosis; E87.1 Hypo-osmolality and hyponatremia; K74.60 Unspecified cirrhosis of liver; F10.239 Alcohol dependence with withdrawal, unspecified; Z20.822 Contact with and (suspected) exposure to COVID-19; Z79.4 Long term (current) use of insulin; E11.9 Type 2 diabetes mellitus without complications; Z79.899 Other long term (current) drug therapy; Z79.84 Long term (current) use of oral hypoglycemic drugs; I10 Essential (primary) hypertension; E87.6 Hypokalemia; R74.01 Elevation of levels of liver transaminase levels
CPT/HCPCS: 36415; 70450-TC; 71045-TC; 76705-TC; 80048-TC; 80061-TC; 80076-TC; 82962-TC; 83605-TC; 83735-TC; 84100-TC; 85025-TC; 85730-TC; 87081-TC; C9113; C9803; G0378; G0480; J1815; J2060; J7030

== ENCOUNTER 2023-09-22 20:55 | Emergency (ER) | payer OTHER ==
[~2023-09-22] VITALS: Ht 165.1 cm; Wt 72.6 kg
[~2023-09-22 20:55] MED LIST changes: -METF-442 PO; +THIA100T74 PO
[2023-09-22 23:14] VITALS: BP 145/98; TEMP 98.4; O2SAT 98
[2023-09-22] MEDS ORDERED: LIDOCAINE /MPF 1% VIAL 5 ML VIAL ONE (23:15)
[2023-09-22] MEDS ORDERED: CEFTRIAXONE 1 G VIAL ONE (23:15)
[2023-09-22] MEDS: CEFTRIAXONE 1 G VIAL IM ONE (23:21)
== END 2023-09-22 23:31 | disposition home or self-care (01) ==
LOC: ER 21:22
DX: S01.412D Laceration without foreign body of left cheek and temporomandibular area, subsequent encounter (principal); E11.9 Type 2 diabetes mellitus without complications; Z60.2 Problems related to living alone; Z79.899 Other long term (current) drug therapy; Z79.4 Long term (current) use of insulin; Y04.0XXD Assault by unarmed brawl or fight, subsequent encounter
CPT/HCPCS: 99283; 96372; J0696; J3490

== ENCOUNTER 2024-01-02 19:33 | Emergency (ER) | payer OTHER ==
[~2024-01-02] VITALS: Ht 167.6 cm; Wt 90.7 kg
[2024-01-02] MEDS ORDERED: IBUPROFEN 600 MG TABLET ONE (20:23)
[2024-01-02] MEDS: IBUPROFEN 600 MG TABLET PO ONE (20:24)
[2024-01-02 20:42] VITALS: BP 128/87; TEMP 98; O2SAT 99
[2024-01-03] MEDS ORDERED: ONDA4TAB11 PO (04:18)
== END 2024-01-02 20:42 | disposition home or self-care (01) ==
LOC: ER 19:34
DX: B34.9 Viral infection, unspecified (principal); I10 Essential (primary) hypertension; E11.9 Type 2 diabetes mellitus without complications; E78.00 Pure hypercholesterolemia, unspecified; Z60.2 Problems related to living alone; Z79.899 Other long term (current) drug therapy

== ENCOUNTER 2024-01-03 03:16 | Emergency (ER) | payer OTHER ==
[~2024-01-03] VITALS: Ht 165.1 cm; Wt 90.7 kg
[2024-01-03] MEDS ORDERED: ONDANSETRON 4 MG TAB.RAPDIS ONE (03:31)
[2024-01-03] MEDS: ONDANSETRON 4 MG TAB.RAPDIS SL ONE (03:34)
[2024-01-03 03:47] LABS: BASOPHILS % (AUTO) 0.1 % (0.0-2.0); EOSINOPHILS # (AUTO) 0.2 K/uL (0.0-0.7); HEMATOCRIT 26 % (39-51); HEMOGLOBIN 8.5 g/dL (13.5-17.5); LYMPHOCYTES # (AUTO) 0.8 K/uL (0.8-4.8); LYMPHOCYTES % (AUTO) 4.9 % (20.0-44.0); MEAN CORPUSCULAR HEMOGLOBIN 33 PG (26.0-33.0); MEAN CORPUSCULAR HGB CONC 32 g/dl (31.0-36.0); MEAN CORPUSCULAR VOLUME 103 fL (80-96); MONOCYTES % (AUTO) 5.9 % (2.0-12.0); NEUTROPHILS # (AUTO) 14.6 K/uL (1.8-8.9); NEUTROPHILS % (AUTO) 88.1 % (43.0-81.0); PLATELET COUNT (AUTO) 227 K/uL (150-450); RED BLOOD CELL COUNT(AUTO) 2.57 MIL/uL (4.5-6.0); RED CELL DISTRIBUTION WIDTH 14.9 % (11.5-15.0); WHITE BLOOD COUNT (AUTO) 16.6 K/uL (4.3-11.0)
[2024-01-03 03:52] LABS: CALCIUM, SERUM 7.6 mg/dL (8.5-10.1); CREATININE 0.7 mg/dL (0.6-1.3); POTASSIUM 3.9 mmol/L (3.5-5.1)
[2024-01-03] MEDS ORDERED: ONDA4TAB11 PO (04:18)
[2024-01-03 04:56] VITALS: BP 137/80; TEMP 98; O2SAT 98
== END 2024-01-03 04:57 | disposition home or self-care (01) ==
LOC: ER 03:18
DX: B34.9 Viral infection, unspecified (principal); R11.10 Vomiting, unspecified; E78.00 Pure hypercholesterolemia, unspecified; E11.9 Type 2 diabetes mellitus without complications; Z60.2 Problems related to living alone; Z79.899 Other long term (current) drug therapy; Z79.4 Long term (current) use of insulin; Z79.84 Long term (current) use of oral hypoglycemic drugs
CPT/HCPCS: 99283; 85025; 80048; 36415; Q0162